=== PATIENT | male | born 1990 | race Caucasian/White ===

== ENCOUNTER 2020-04-12 01:24 | Emergency (ER) | payer OTHER, SELFPAY ==
[2020-04-12 01:29] VITALS: BP 138/92; PULSE 105; RESP 18; TEMP 37.8; O2SAT 95; BMI 35.3
[2020-04-12 02:22] VITALS: TEMP 37.4
[2020-04-12] MEDS: 0.9 % Sodium Chloride 1,000 ML 999 ML IVCONT (03:31)
[2020-04-12] MEDS: Ketorolac Tromethamine 30 MG/ML VIAL IVPUSH (03:31)
[2020-04-12 03:44] LABS: MANUAL DIFF FLAG NO
[2020-04-12 03:45] LABS: Basophils Percent Auto 0.4 % (0-2); Eosinophils Percent Auto 0.2 % (0-4); Hematocrit 47.7 % (42-52); Hemoglobin 16.1 g/dl (14.0-18.0); Imm Gran Abs Auto 0.03 X10*3/uL (0.00-0.03); Imm Gran Pct Auto 0.3 % (0.0-0.4); Lymphocytes Absolute Auto 2.1 X10*3/uL (1.2-4.9); Lymphocytes Percent Auto 22.1 % (20-40); Mean Corpuscular HGB Conc 33.8 g/dl (31.0-36.0); Mean Corpuscular Hemoglobin 27.8 pg (27.0-33.0); Mean Corpuscular Volume 82.4 fL (80-98); Mean Platelet Volume 10.4 fL (9.4-12.4); Monocytes Absolute Auto 0.7 X10*3/uL (0.1-1.2); Monocytes Percent Auto 7.3 % (2-11); Neutrophils Absolute Auto 6.6 X10*3/uL (2.0-8.3); Neutrophils Percent Auto 69.7 % (45-73); Platelet Count 255 X10*3/uL (160-400); Red Blood Count 5.79 X10*6/uL (4.60-5.80); Red Cell Distribution Width 13.5 % (11.0-16.0); White Blood Count 9.5 X10*3/uL (4.8-10.8)
--- NOTE | 2020-04-12 03:50 | PC.NURSE ---
dr márquez placed central line in right jugular. tolerated well. pt bp 100/60 at this time 101 bpm on monitor.
[2020-04-12 03:51] VITALS: RESP 24
[2020-04-12 04:20] LABS: Alanine Aminotransferase 49 U/L (0-40); Alkaline Phosphatase 79 U/L (39-117); Anion Gap 14 (12-20); Aspartate Amino Transferase 41 U/L (5-37); Bilirubin Direct 0.2 mg/dL (0.0-0.5); Blood Urea Nitrogen 8 mg/dL (9-16); Calcium 9.8 mg/dL (8.4-10.2); Carbon Dioxide 28 mmol/L (22-29); Chloride 105 mmol/L (96-108); Creatinine Clr Calc Pharmacy 109.2; Estimated Glomerular Filt Rate > 60; Glucose Random 90 mg/dL (60-115); Potassium 4.5 mmol/l (3.3-5.1); Sodium 142 mmol/L (135-145); Total Protein 7.9 g/dL (6.5-8.0)
[2020-04-12 04:23] VITALS: BP 145/88; PULSE 75; RESP 18; TEMP 37.2; O2SAT 99
--- NOTE | 2020-04-12 04:46 | ED.GENADULT ---
HPI - General Adult General Chief complaint: Weakness Stated complaint: COVID SYMPTOMS Time Seen by Provider: 04/12/20 02:47 Source: patient Mode of arrival: ambulatory Limitations: no limitations History of Present Illness HPI narrative: patient states for 1-2 days has been feeling generalized weakness. Mild cough and runny nose. Patient states was exposed to someone with COVID couple days ago and now feeling run down. Denies chest pain shortness of breath or dyspnea on exertion. Denies nausea vomiting or diarrhea Onset (ago): day(s) ( 2 days) Severity: moderate Severity scale (1-10): 3 Pain Consistency: constant Relieving factors: none Exacerbating factors: immobilization Related Data Allergies Allergy/AdvReac Type Severity Reaction Status Date / Time No Known Drug Allergies Allergy Unknown NONE Unverified 03/20/20 16:16 [NO KNOWN DRUG ALLERGIES] Review of Systems Review of Systems: Constitutional : No Weight loss, No Fever, No Chills, No Night Sweats, positiveFatigue, general Malaise ENT/Mouth : No Hearing loss, No Ear Pain, No Nasal Congestion, No Sinus Pain, No Hoarseness, No sore throat, No Rhinorrhea, No Swallowing Difficulty Eyes: No Eye Pain, No Swelling, No Redness, No Foreign Body, No Discharge, No Vision Changes Cardiovascular : No Chest Pain, No SOB, No Dyspnea on Exertion, No Orthopnea, No Edema, No Palpitations Respiratory : No Cough, No Sputum, No Wheezing, No Smoke Exposure, No Dyspnea Gastrointestinal : No Nausea, No Vomiting, No Diarrhea, No Constipation, No abdominal Pain, No Hematochezia, No Melena Genitourinary : no irregular bleeding, No Dysuria, No Urinary Frequency, No Hematuria, No Urinary Incontinence, No Urgency, No Flank Pain, No Urinary Flow Changes, No Hesitancy Musculoskeletal : No joint pain, No Myalgias, No Joint Swelling Skin : No Skin Lesions, No rash Neuro : No Weakness, No Numbness, No Paresthesias, No Loss of Consciousness, No Dizziness, No Headache Psych : No Anxiety/Panic, No Depression, No SI/HI/AH/VH, No Social Issues, Heme/Lymph: No Bruising, No Bleeding,No Lymphadenopathy Endocrine : No Polyuria, No Polydipsia, No Temperature Intolerance PMFSH Past Medical History Medical History ADHD Hypertension Family History Family History (Updated 04/12/20 @ 04:47 by Nikolai Ozuna DO) Other Family history non-contributory Social History Social History Alcohol intake: never Smoking Status: Former smoker Smoked in Last 30 Days: No Use of substances other than those prescribed or required for medical reasons: No Advance Directives: No Advance Directives Information Provided: No Physical Exam Vital Signs and I&O and Narrative: Vital Signs and I&O: Vital Signs Temp 99.0 F 04/12/20 04:23 Pulse 75 04/12/20 04:23 Resp 18 04/12/20 04:23 BP 145/88 H 04/12/20 04:23 Pulse Ox 99 04/12/20 04:23 Intake & Output 04/11/20 04/11/20 04/12/20 06:59 18:59 06:59 Intake Total 1000 / 1000 Balance 1000 / 1000 Weight 84.822 kg Intake: Intake, IV Amoun t 1000 / 1000 0.9 % Sodium C hloride 1,000 ml 1000 / 1000 @ 999 mls/hr I VCONT .Q1H1M [facility] Rx#:[id number] Body Mass Index 35.3 vital signs reviewed pulse ox 99% room air interpreted by me as normal Appearance: Alert. Oriented X3. No acute distress. Eyes: Pupils equal, round and reactive to light. ENT: Pharynx normal. Neck: Normal inspection. Neck supple. No lymph nodes noted. No crepitus CVS: Normal heart rate and rhythm. Pulses normal. Normal S1 and S2 Respiratory: No respiratory distress. Breath sounds normal. No Wheezing. No rales Abdomen: Soft and nontender. No rigidity. No distention. good BS x4 Skin: Skin warm and dry. Normal skin color. Normal skin turgor. Extremities: No lower extremity edema. Neurovascular intact to all extremities. No Lacerations. No Rash Neuro: Oriented X 3. No motor deficit. No sensory deficit. Moving all extermities. No slurred speech. Medical Decision Making MDM Narrative Medical decision making narrative: 29-year-old male coming in for generalized malaise. History of positive COVID exposure. Normal labs no hypoxia feeling better with IV Toradol and IV fluids will discharge with isolation recommendations until COVID test results Lab Data Result diagrams: 04/12/20 03:32 04/12/20 03:32 Labs: Lab Results 04/12/20 04/12/20 Range/Units 03:32 03:32 WBC 9.5 (4.8-10.8) X10*3/uL RBC 5.79 (4.60-5.80) X10*6/uL Hgb 16.1 (14.0-18.0) g/dl Hct 47.7 (42-52) % MCV 82.4 (80-98) fL MCH 27.8 (27.0-33.0) pg MCHC 33.8 (31.0-36.0) g/dl RDW 13.5 (11.0-16.0) % Plt Count 255 (160-400) X10*3/uL MPV 10.4 (9.4-12.4) fL Immature Gran % (Auto) 0.3 (0.0-0.4) % Neut % (Auto) 69.7 (45-73) % Lymph % (Auto) 22.1 (20-40) % Real % (Auto) 7.3 (2-11) % Eos % (Auto) 0.2 (0-4) % Baso % (Auto) 0.4 (0-2) % Lymph # (Auto) 2.1 (1.2-4.9) X10*3/uL Real # (Auto) 0.7 (0.1-1.2) X10*3/uL Eos # (Auto) 0.0 (0.0-0.4) X10*3/uL Baso # (Auto) 0.0 (0.0-0.2) X10*3/uL Abs Immat Gran (auto) 0.03 (0.00-0.03) X10*3/uL Absolute Neuts (auto) 6.6 (2.0-8.3) X10*3/uL Absolute Nucleated RBC 0.000 (0.0-0.012) X10*3/uL Nucleated RBC % (auto) 0.0 (0.0-0.2) /100WBC Sodium 142 (135-145) mmol/L Potassium 4.5 (3.3-5.1) mmol/l Chloride 105 (96-108) mmol/L Carbon Dioxide 28 (22-29) mmol/L Anion Gap 14 (12-20) BUN 8 L (9-16) mg/dL Creatinine 0.93 (0.5-1.4) mg/dL Estim Creat Clear Calc 109.2 Estimated GFR > 60 Random Glucose 90 (60-115) mg/dL Calcium 9.8 (8.4-10.2) mg/dL Total Bilirubin 1.0 (0.0-1.0) mg/dL Direct Bilirubin 0.2 (0.0-0.5) mg/dL AST 41 H (5-37) U/L ALT 49 H (0-40) U/L Alkaline Phosphatase 79 (39-117) U/L Total Protein 7.9 (6.5-8.0) g/dL Albumin 5.0 (3.5-5.0) g/dL Discharge Plan Discharge Clinical Impression: Acute viral syndrome, Malaise Patient Disposition: Home, Self-Care Instructions: Viral Syndrome (ED) Additional Instructions: CDC Guidelines for home isolation: Follow these instructions until your Covid results return - Stay away from others - Limit contact with pets and animals: If you must care for a pet, wash your hands before and after interacting with them - Wear a mask if you are sick - Cover your mouth and nose with a tissue when you cough or sneeze. Dispose of tissues in a lined trash can and wash your hands immediately with soap and water for at least 20 seconds. If soap and water are not available, clean hands with alcohol-based hand lease administration supervisor that contains at least 60% alcohol. - Clean your hands often with soap and water for at least 20 seconds - Avoid touching your eyes, nose and mouth with unwashed hands - Do not share dishes, drinking glasses, cups, eating utensils, towels, or bedding with other people in your home. After using these items, wash them thoroughly with soap and water or put in the jigger machine operator. - Clean high-touch surfaces in your isolation area ( sick room and bathroom) every day; let a caregiver clean and disinfect high-touch surfaces in other areas of the home. Clean the area or item with soap and water or another detergent if it is dirty. Then, use a household disinfectant. Seek medical attention, but call first: - Seek medical care right away if your illness is worsening (for example, if you have difficulty breathing). - Call your doctor before going in: Before going to the doctor's office or emergency room, call ahead and tell them your symptoms. They will tell you what to do. - If possible, put on a facemask before you enter the building. If you can't put on a facemask, try to keep a safe distance from other people (at least 6 feet away). This will help protect the people in the office or waiting room. - Follow care instructions from your healthcare provider and local health department: Your local health authorities will give instructions on checking your symptoms and reporting information. Emergency warning signs for COVID-19: - Difficulty breathing or shortness of breath - Persistent pain or pressure in the chest - New confusion or inability to arouse - Bluish lips or face Referrals: [facility] [Provider Group] - 2 days Interventions: ED Discharge Assessment Last Done: 04/12/20 05:02 Discharge Date/Time: 04/12/20 05:05
== END 2020-04-12 05:05 | disposition home or self-care (01) ==
PROVIDERS: Emergency Provider Emergency Medicine
DX: R05 Cough (principal); Z20.828 Contact with and (suspected) exposure to other viral communicable diseases
CPT/HCPCS: 36415; 80048; 80076; 85025; 87635; 96361; 96374; 99284; J1885

== ENCOUNTER 2020-07-15 23:07 | Emergency (ER) | payer OTHER, SELFPAY ==
[2020-07-15 23:12] VITALS: BP 131/65; PULSE 82; RESP 16; TEMP 36.7; O2SAT 98; BMI 33.0
[2020-07-15 23:53] LABS: Amphetamine Screen Urine Not Detected (Not Detect); Barbiturates, Urine Not Detected (Not Detect); Benzodiazepines Screen Urine Not Detected (Not Detect); Cannabinoid Screen Urine Not Detected (Not Detect); Cocaine Screen Urine Not Detected (Not Detect); Opiate Screen Urine Not Detected (Not Detect); Phencyclidine Screen Urine Not Detected (Not Detect)
--- NOTE | 2020-07-16 01:21 | MHC.CARE ---
CARE team support requested by ED provider re: assessing a pt who arrived by ambulance from work after making a suicidal statement during an argument with his boss. Pt reported that he works at [employer] and had a difficult weekend at work. Pt reported that overall he enjoys his job and that it keeps him busy, however on his days off he struggles to keep his mind occupied, especially given the social impacts of covid-19. Pt endorsed experiencing passive thoughts of suicidal ideation, though denied current thoughts. Pt identified financial and social stressors as the precipitants to these thoughts. Pt denied hx of suicide attempts, suicide planning, or engagement in self harm. Pt reported a hx of one previous inpt psychiatric admission in 2012. Pt is currently engaged with a therapist and a psychiatrist through [facility] in [place]. Pt has an appointment this week with his therapist, and stated that he has been consistent with treatment and finds it to be helpful. ED provider updated re: consultation, with plan for pt to discharge and follow up with his outpatient providers.
--- NOTE | 2020-07-16 01:25 | ED.PSYCH ---
HPI - Psych General Chief Complaint: Psychiatric Symptoms Stated Complaint: SI Source: patient Mode of arrival: ambulatory Limitations: no limitations History of Present Illness HPI Narrative: Patient presents to ED for mild SI statements that he said he made to his boss during an argument because he was mad. Patient has no plan to kill himself. Patient states he is compliant with his medication and has follow-up with his therapist this week. Patient states he has been under lot of stress at work. Related Data Allergies Allergy/AdvReac Type Severity Reaction Status Date / Time No Known Drug Allergies Allergy Unknown NONE Unverified 03/20/20 16:16 [NO KNOWN DRUG ALLERGIES] Review of Systems Review of Systems: Yes all other systems are reviewed and are negative Constitutional: Constitutional: Reports as per HPI and Reports no additional constitutional complaints Eyes: Eyes: Reports as per HPI and Reports no additional eye complaints ENT: Reports system reviewed and no additional complaints, except as documented and Reports as per HPI Cardiovascular: Cardiovascular: Reports as per HPI and Reports no additional cardiovascular complaints Respiratory: Respiratory: Reports as per HPI and Reports no additional respiratory complaints Gastrointestinal: Gastrointestinal: Reports as per HPI and Reports no additional gastrointestinal complaints Genitourinary: Genitourinary: Reports no additional male genitourinary complaints and Reports as per HPI Musculoskeletal: Musculoskeletal: Reports no additional musculoskeletal complaints and Reports as per HPI Neurologic: Reports system reviewed and no additional complaints, except as documented and Reports as per HPI Psychiatric: Psychiatric: Reports no additional psychiatric complaints and Reports as per HPI PMF Past Medical History Medical History ADHD Hypertension Family History Family History (Updated 04/12/20 @ 04:47 by Nikolai Ozuna DO) Other Family history non-contributory Social History Social History Alcohol intake: never Smoking Status: Former smoker Advance Directives: No Physical Exam Vital Signs: Vital Signs: Last Vital Signs Temp 98.0 F 07/15/20 23:12 Pulse 82 07/15/20 23:12 Resp 16 07/15/20 23:12 BP 131/65 07/15/20 23:12 Pulse Ox 98 07/15/20 23:12 Body Mass Index 33.0 Const: General: cooperative, healthy appearing, comfortable, no acute distress, well developed, alert, awake and Physically active Orientation/consciousness: patient oriented x3 HENMT: Head: Yes normal to inspection, Yes No palpable skull fracture present, Yes normocephalic and Yes atraumatic Eyes: General: appearance normal, both eyes and all related structures Neck: Neck: Yes normal visual inspection, Yes full ROM, Yes no lymphadenopathy, Yes no meningeal signs, Yes trachea midline, Yes supple and No tender Chest: Chest palpation & inspection: normal inspection of the chest and normal palpation of entire chest wall Resp: Effort & Inspection: normal respiratory effort and able to speak in complete sentences Auscultation: clear to auscultation bilaterally Cardio: Jugular venous distension: no JVD Heart sounds: S1 normal heart sound present and S2 normal heart sound present GI: Inspection: Yes normal to inspection and No abdominal wall ecchymosis Palpation (GI): Soft to palpation, not firm, nontender, no guarding and not rigid : General: No CVA tenderness and Yes no CVA tenderness Back/Spine/Pelvis: Back: no CVA tenderness, No CVA tenderness and No back tenderness Skin: General skin exam: no rashes or lesions noted and elasticity normal Neuro: General: patient oriented x3, no meningeal signs and CN's II-XI intact bilaterally Cranial nerves: Yes CN's II-XII intact bilaterally Extrem: General: Yes normal to inspection and Yes full ROM Psych: Appearance: grossly normal, well kempt and not disheveled Mental Status: mental status grossly normal Speech and movement: Normal speech and movement present Affect: normal affect Attitude: cooperative Thought process: Normal thought process present Thought content: suicidality and no homicidality Insight: Good insight present (Psych) Judgement: Good judgement present (Psych) Course Course Course Narrative: Patient U tox will be sent and patient will be evaluated for care Team consult amanda. Reevaluation(s) Reevaluation #1: Care team technical assistance consultant Michelle evaluated patient and states patient does not need [facility] evaluation. She states patient is not suicidal or homicidal. She states patient has no plan and is safe for discharge. I re-evaluated patient and patient is not suicidal or homicidal. Time: 01:26 MDM - Psych MDM Narrative Medical decision making narrative: Depression Restraints Face to Face Assessment: Face to Face Assessment: Current Situation: After assessment of the patient, a review of the pertinent medical record and a discussion with nursing staff, I feel the patient requires a restrain intervention. Reaction To: [] Medical Condition: [] Behavioral State: [] Continued Need: [] Lab Data Labs: Lab Results 07/15/20 Range/Units 23:32 Urine Opiates Screen Not Detected (Not Detect) Ur Barbiturates Screen Not Detected (Not Detect) Ur Phencyclidine Scrn Not Detected (Not Detect) Ur Amphetamines Screen Not Detected (Not Detect) U Benzodiazepines Scrn Not Detected (Not Detect) Urine Cocaine Screen Not Detected (Not Detect) U Marijuana (THC) Screen Not Detected (Not Detect) Discharge Plan Discharge Clinical Impression: Depression Patient Disposition: Home, Self-Care Instructions: Depression (ED) Additional Instructions: Return to the ED immediately for any suicidal/homicidal ideation, auditory/visual hallucinations, any physical complaints, or any other concerning symptoms. Please follow-up with your therapist Interventions: ED Discharge Assessment Last Done: 07/16/20 01:34 Discharge Date/Time: 07/16/20 01:46 Print Language: Occitan
== END 2020-07-16 01:46 | disposition home or self-care (01) ==
PROVIDERS: Emergency Provider Internal Medicine
DX: F33.1 Major depressive disorder, recurrent, moderate (principal); R45.851 Suicidal ideations
CPT/HCPCS: 80307; 99283

== ENCOUNTER 2025-03-21 12:38 | Inpatient (IN) | payer MEDICAID, OTHER, SELFPAY ==
[2025-03-21 12:51] VITALS: BP 138/88; PULSE 86; O2SAT 96; BMI 36.1
[2025-03-21 13:12] LABS: MANUAL DIFF FLAG NO
[2025-03-21 13:15] LABS: Hematocrit 47.7 % (42.0-52.0); Hemoglobin 16.6 g/dl (14.0-18.0); Imm Gran Abs Auto 0.02 X10*3/uL (0.00-0.03); Imm Gran Pct Auto 0.3 % (0.0-0.4); Lymphocytes Absolute Auto 1.6 X10*3/uL (1.2-4.9); Mean Corpuscular HGB Conc 34.8 g/dl (31.0-36.0); Mean Corpuscular Hemoglobin 28.0 pg (27.0-33.0); Mean Corpuscular Volume 80.6 fL (80.0-98.0); NRBC Abs Auto 0.000 X10*3/uL (0.0-0.012); NRBC Pct Auto 0.0 /100WBC (0.0-0.2); Platelet Count 268 X10*3/uL (160-400); Red Blood Count 5.92 X10*6/uL (4.60-5.80); White Blood Count 7.3 X10*3/uL (4.8-10.8)
--- NOTE | 2025-03-21 13:15 | ED.PSYCH ---
HPI - Psych General Chief Complaint: Psychiatric Symptoms Stated Complaint: SI statements Time Seen by Provider: 03/21/25 12:46 Source: patient, EMS and old records reviewed Mode of arrival: EMS Limitations: no limitations History of Present Illness ED Provider: DEBORAH SLAUGHTER Narrative: 34 yo male with PMH of ETOH abuse, seizures, depression, cocaine abuse who notes he is having a hard time with paying bills and living. He went to therapy today and told them he hasn't taken his meds in a month, he has SI and plans to overdose on his medications. He denies ingestions or trauma. He is having financial issues MD complaint: suicidal ideation, feels depressed and substance abuse Onset (ago): week(s) Duration: getting worse History of same: Yes Relieving factors: none Exacerbating factors: alcohol Context: recent alcohol abuse, recent drug abuse, not taking psychiatric medications and significant life stressor Associated psychiatric symptoms: depression and suicidal ideation Associated symptoms: denies other symptoms Treatments prior to arrival: none If self harm: admits thoughts of self harm and has plan Related Data Home Medications ?Medication ?Instructions ?Recorded ?Confirmed escitalopram oxalate 20 mg tablet 20 mg PO QAM depressive disorder 03/21/25 03/21/25 folic acid 1 mg tablet 1 mg PO DAILY 03/21/25 03/21/25 levetiracetam 500 mg tablet 500 mg PO BID 03/21/25 03/21/25 naltrexone 50 mg tablet 50 mg PO QAM 03/21/25 03/21/25 quetiapine 200 mg tablet 200 mg PO BEDTIME 03/21/25 03/21/25 thiamine HCl (vitamin B1) 100 mg 100 mg PO DAILY 03/21/25 03/21/25 tablet Allergies Allergy/AdvReac Type Severity Reaction Status Date / Time No Known Drug Allergies (NO Allergy Unknown NONE Verified 03/21/25 12:59 KNOWN DRUG ALLERGIES) Review of Systems Review of Systems: Constitutional : No Fever, No Chills ENT/Mouth : No Ear Pain, No Nasal Congestion, No sore throat Eyes: No Eye Pain, No Swelling, No Redness Cardiovascular : No Chest Pain, No SOB Respiratory : No Cough, No Sputum, No Dyspnea Gastrointestinal : No Nausea, No Vomiting, No Diarrhea, No Hematochezia, No Melena Genitourinary : No Dysuria, No Urinary Frequency, No Hematuria Musculoskeletal : No Myalgias Skin : No Skin Lesions, No rash Neuro : No Weakness, No Numbness, No Paresthesias, No Dizziness, No Headache Psych : positive Anxiety, positive Depression, positive SI no HI All other systems reviewed and are negative [facility] Past Medical History Attestation statement: The following information was validated with the patient. Source: old records reviewed Medical History Hypertension ADHD Family History Family History (Updated 04/12/20 @ 04:47 by Nikolai Ozuna DO) Other Family history non-contributory Social History Social History Household Members: None Housing: Apartment Do you presently have visiting nurse or other home services: No Alcohol intake: never Patient Tobacco Use Status: Refuse Tobacco use screen Advance Directives: No Advance Directives Information Provided: No Do you have a plan to hurt others: No Plan Recently lost weight without trying: No Eating poorly because of decreased appetite: Yes Nutrition Risks: No Nutritional Risk Poor oral hygiene: Yes Physical Exam Vital Signs: Vital Signs: Last Vital Signs Temp 97.7 F 03/22/25 12:30 Pulse 97 03/22/25 12:30 Resp 20 03/22/25 12:30 BP 119/86 03/22/25 12:30 Pulse Ox 98 03/22/25 12:30 O2 Del Method Room Air 03/22/25 12:30 BMI result Body Mass Index 36.1 Appearance: Alert. Oriented X3. No acute distress. Eyes: Pupils equal, round and reactive to light. ENT: Pharynx normal. Neck: Normal inspection. Neck supple. CVS: Normal heart rate and rhythm. Pulses normal. Respiratory: No respiratory distress. Breath sounds normal. Abdomen: Soft and nontender. Skin: Skin warm and dry. Normal skin color. Extremities: No lower extremity edema. Neuro: Oriented X 3. No motor deficit. No sensory deficit. cranial nerve exam not applicable Course Course Course Narrative: Time: 06:04 Date: 03/22/25 Provider: Marya Mcmanus DO Patient in physician observation for psychiatric evaluation.? No acute events reported overnight. No current complaints. VS stable.? Pending CARE team evaluation. Will continue to monitor. Reevaluation(s) Reevaluation #1: Time: 12:03 Date: 03/22/25 Provider: Marya Mcmanus DO Physician observation ended at 1203pm. Patient to be admitted as inpatient to psychiatry. Medications Administered Generic Name Dose Route Start Last Admin Trade Name Rodoq PRN Reason Stop Dose Admin Escitalopram Oxalate 20 mg 03/22/25 09:00 03/22/25 08:52 Escitalopram Oxalate 20 Mg Tablet PO 20 mg DAILY KHALIF Administration Folic Acid 1 mg 03/22/25 09:00 03/22/25 08:52 Folic Acid 1 Mg Tablet PO 1 mg DAILY KHALIF Administration Hydroxyzine HCl 25 mg 03/22/25 13:10 03/22/25 14:17 Hydroxyzine Hcl 25 Mg Tablet PO 25 mg Q6H PRN Administration mild anxiety Levetiracetam 500 mg 03/21/25 14:00 03/22/25 08:52 Levetiracetam 500 Mg Tablet PO 500 mg BID KHALIF Administration Naltrexone HCl 50 mg 03/22/25 09:00 03/22/25 08:52 Naltrexone Hcl 50 Mg Tablet PO 50 mg DAILY KHALIF Administration Thiamine HCl 100 mg 03/22/25 09:00 03/22/25 08:52 Thiamine Hcl 100 Mg Tablet PO 100 mg DAILY KHALIF Administration Discontinued Medications Generic Name Dose Route Start Last Admin Trade Name Freq PRN Reason Stop Dose Admin Diphenhydramine HCl 25 mg 03/21/25 19:54 03/21/25 20:08 Diphenhydramine Hcl 25 Mg Capsule PO 03/21/25 19:55 25 mg ONCE ONE Administration Diphenhydramine HCl 25 mg 03/22/25 03:00 03/22/25 06:14 Diphenhydramine Hcl 25 Mg Capsule PO 03/22/25 03:01 Not Given ONCE ONE Lorazepam 2 mg 03/21/25 13:49 03/22/25 02:15 Lorazepam 1 Mg Tablet PO 2 mg Q3H PRN Administration Alcohol Withdrawal Melatonin 6 mg 03/21/25 19:54 03/21/25 20:08 Melatonin 3 Mg Tablet PO 03/21/25 19:55 6 mg ONCE ONE Administration Melatonin 6 mg 03/22/25 03:00 03/22/25 06:15 Melatonin 3 Mg Tablet PO 03/22/25 03:01 Not Given ONCE ONE Quetiapine Fumarate 200 mg 03/22/25 03:00 03/22/25 03:09 Quetiapine Fumarate 200 Mg Tablet PO 03/22/25 03:01 200 mg ONCE ONE Administration Medical Decision Making Medical Decision Making MDM Narrative: 34 yo male with PMH of ETOH abuse, seizures, depression, cocaine abuse now here with financial issues and unable to pay the bills at this time will need labs, PRN medications including restarting 500mg BID for his seizure, CIWA and PRN ativan. He will be referred to care team Differential Diagnosis Differential Diagnoses: The differential diagnosis associated with the presentation includes drug abuse, SI, depression Admission/Observation Consideration of admission/observation: Escalation of care including admission/observation considered physician observation started at 2pm pending CARE team Consult Healthcare Provider Management of the patient was discussed with: Behavioral Health Provider Lab Data [facility] Lab Attestation statement: I reviewed the patient's lab results. 03/21/25 13:06 03/21/25 13:06 Labs: Lab Results 03/21/25 03/21/25 03/21/25 Range/Units 13:06 16:48 16:49 WBC 7.3 (4.8-10.8) X10*3/uL RBC 5.92 H (4.60-5.80) X10*6/uL Hgb 16.6 (14.0-18.0) g/dl Hct 47.7 (42.0-52.0) % MCV 80.6 (80.0-98.0) fL MCH 28.0 (27.0-33.0) pg MCHC 34.8 (31.0-36.0) g/dl RDW 13.7 (11.0-16.0) % Plt Count 268 (160-400) X10*3/uL MPV 9.6 (9.4-12.4) fL Immature Gran % (Auto) 0.3 (0.0-0.4) % Neut % (Auto) 69.1 (45-73) % Lymph % (Auto) 21.8 (20-40) % [place] % (Auto) 6.9 (2-11) % Eos % (Auto) 1.2 (0-4) % Baso % (Auto) 0.7 (0-2) % Lymph # (Auto) 1.6 (1.2-4.9) X10*3/uL [place] # (Auto) 0.5 (0.1-1.2) X10*3/uL Eos # (Auto) 0.1 (0.0-0.4) X10*3/uL Baso # (Auto) 0.1 (0.0-0.2) X10*3/uL Abs Immat Gran (auto) 0.02 (0.00-0.03) X10*3/uL Absolute Neuts (auto) 5.1 (2.0-8.3) x10*3/uL Absolute Nucleated RBC 0.000 (0.0-0.012) X10*3/uL Nucleated RBC % (auto) 0.0 (0.0-0.2) /100WBC Sodium 142 (135-145) mmol/L Potassium 3.5 (3.3-5.1) mmol/L Chloride 104 (96-108) mmol/L Carbon Dioxide 29 (22-29) mmol/L Anion Gap 13 (12-20) BUN 10 (9-16) mg/dL Creatinine 1.00 (0.5-1.4) mg/dL Estim Creat Clear Calc 94.4 Estimated GFR > 60 Random Glucose 100 (60-115) mg/dL Calcium 9.8 (8.4-10.2) mg/dL Magnesium 1.8 (1.6-2.6) mg/dL Total Bilirubin 1.0 (0.0-1.0) mg/dL Direct Bilirubin 0.2 (0.0-0.5) mg/dL AST 27 (5-37) U/L ALT 29 (0-40) U/L Alkaline Phosphatase 116 (39-117) U/L Total Protein 8.5 H (6.5-8.0) g/dL Albumin 4.9 (3.5-5.0) g/dL Urine Color Yellow Urine Appearance Clear Urine pH 6.0 (5.0-9.0) Ur Specific [place] 1.025 (1.005-1.025) Urine Protein Trace (Neg-Trace) mg/dL Urine Glucose (UA) Negative (Negative) mg/dL Urine Ketones 15 (Negative) mg/dL Urine Blood Negative (Negative) Urine Nitrite Negative (Negative) Ur Leukocyte Esterase Negative (Negative) Urine RBC 0-2 (0-2) /HPF Urine WBC 0-5 (0-5) /HPF Ur Squamous Epith Cells 0-2 (0-2) /HPF Urine Bacteria None Seen (None Seen) Hyaline Casts 3-5 (0-2) /LPF Urine Opiates Screen Not Detected (Not Detect) Ur Buprenorphine Scrn Not Detected (Not Detect) ng/mL Ur Oxycodone Screen Not Detected (Not Detect) ng/mL Urine Methadone Screen Not Detected (Not Detect) ng/mL Urine Fentanyl Screen Not Detected (Not Detect) Ur Barbiturates Screen Not Detected (Not Detect) Ur Phencyclidine Scrn Not Detected (Not Detect) Ur Amphetamines Screen Not Detected (Not Detect) U Benzodiazepines Scrn Not Detected (Not Detect) Urine Cocaine Screen POSITIVE H (Not Detect) U Marijuana (THC) Screen Not Detected (Not Detect) Ethyl Alcohol < 10 mg/dL Independent Historian Clinical information obtained from an independent historian. History obtained from or confirmed by: EMS External Record Review External record reviewed: Inpatient record and Outpatient record Social Determinants Patient?s care significantly limited by Social Determinants of Health including: Inadequate housing and Problems related to primary support group Discharge Plan Discharge Clinical Impression: Suicidal ideation Patient Disposition: Admitted As Inpatient Interventions: Admission Worksheet (ED) Last Done: 03/22/25 12:03 Discharge Date/Time: 03/22/25 12:12
[2025-03-21 13:33] LABS: Alanine Aminotransferase 29 U/L (0-40); Albumin Level 4.9 g/dL (3.5-5.0); Alkaline Phosphatase 116 U/L (39-117); Anion Gap 13 (12-20); Aspartate Amino Transferase 27 U/L (5-37); Blood Urea Nitrogen 10 mg/dL (9-16); Calcium 9.8 mg/dL (8.4-10.2); Carbon Dioxide 29 mmol/L (22-29); Chloride 104 mmol/L (96-108); Creatinine Clr Calc Pharmacy 94.4; Estimated Glomerular Filt Rate > 60; Magnesium 1.8 mg/dL (1.6-2.6); Potassium 3.5 mmol/L (3.3-5.1); Sodium 142 mmol/L (135-145); Total Protein 8.5 g/dL (6.5-8.0)
[2025-03-21 14:27] VITALS: BP 140/89; PULSE 112; RESP 18; TEMP 36.3; O2SAT 98
--- NOTE | 2025-03-21 14:32 | PC.NURSE ---
Pt is oriented to the unit and provided food and a beverage. Pt is quiet and withdrawn, he admits to feeling very depressed and wanting to , he states he has thought about hoarding pills and overdosing. He is given a PRN - ativan and is ressting in his room. safety is maintained.
--- NOTE | 2025-03-21 15:20 | ECG_ITS ---
Test Reason : R/O PROLONGED QT Blood Pressure : */* mmHG Vent. Rate : 83 BPM Atrial Rate : 83 BPM P-R Int : 156 ms QRS Dur : 92 ms QT Int : 378 ms P-R-T Axes : 50 6 38 degrees QTcB Int : 444 ms Normal sinus rhythm with sinus arrhythmia Normal ECG No previous ECGs available Referred By: Marya Mcmanus Electronically Signed By: SVETLANA RODRIGUEZ
--- OUTSIDE RECORDS SUMMARY | 2025-03-21 16:23 | XMS_ITS | Clinical Summary ---
Author Organization [facility] Address [address] [place] [address] Care Team Providers Care Warehouse Selector Name Role Phone Ref, Has No Pcp Or Primary Care Provider Unavail able Allergies No known active allergies Medications acetaminophen (TYLENOL) 325 mg tablet Take 650 mg by mouth every 4 hours as needed for pain. Active calcium carbonate-vitam in D3 500 mg-200 units tablet Take 1 tablet by mouth 3 times a day as needed (heartburn). Active docusate sodium (COLACE) 100 mg capsule Take 100 mg by mouth 2 times a day as needed for constipation. Active ibuprofen (MOTRIN) 400 mg tablet Take 400 mg by mouth every 8 hours as needed for pain. Active lithium 300 mg tablet Take 300 mg by mouth at bed time. Nightly once a day Active loperamide (IMODIUM) 2 mg capsule Take 2 mg by mouth as needed for diarrhea. Active melatonin 3 mg tablet Take 3 mg by mouth nightly as needed for sleep. Active nicotine polacrilex (NICORETTE) [address] 2 mg between cheek and gums as needed for nicotine cravings. Active QUEtiapine XR (SEROquel XR) 200 mg tablet Take 200 mg by mouth nightly. Active albuterol (PROAIR HFA,VENTOLIN HFA) 90 mcg inhaler Inhale 1-2 puffs by mouth every 4 hours as needed for wheezing or shortness of breath. Use with spacer. Active cetirizine (ZyrTEC) 10 mg tablet Take 10 mg by mouth once a day. Active omeprazole OTC (PriLOSEC OTC) 20 mg EC tablet Take 20 mg by mouth once a day. Active levETIRAcetam (KEPPRA) 500 mg tablet Take 1 tablet (500 mg total) by mouth 2 times a day. 60 tablet 4 Active folic acid (FOLVITE) 1 mg tablet Take 1 tablet (1 mg total) by mouth once a day. 30 tablet Active thiamine HCl (VITAMIN B1) 100 mg tablet Take 1 tablet (100 mg total) by mouth once a day. 30 tablet Active escitalopram (LEXAPRO) 20 mg tablet Take 1 tablet (20 mg total) by mouth once a day. 30 tablet Active Active Problems Problem Noted Date Diagnosed Date Moderate episode of recurrent major depressive d isorder 11/16/2023 PTSD (post-traumatic stress disorder) 11/16/2023 History of suicidal ideation 11/16/2023 ADHD 11/16/2023 Seizure disorder 11/16/2023 Substance abuse 11/16/2023 Resolved Problems Problem Noted Date Diagnosed Date Resolved Date Alcohol-induced acute pancre atitis without infection or necrosis 11/25/2023 11/25/2023 Rhabdomyolysis 11/16/2023 11/25/2023 Social History Tobacco Use Types Packs/Day Years Used Date Smoking Tobacco: Never Smokeless Tobacco: Never Tobacco Cessation:Counseling Given: No Sex and Gender Information Value Date Recorded Sex Assigned at Male 11/15/2023 10:14 PM EDT Legal Sex Male 9:20 PM EDT Gender Identity Not on file Sexual Orientation Not on file Last Filed Vital Signs Vital Sign Reading Time Taken Comments Blood Pressure 128/94 11/25/2023 12:22 PM EDT Pulse 87 11/25/2023 12:30 PM EDT Temperature 36.3 C (97.3 F) 11/25/2023 12:22 PM EDT Respiratory Rate 18 11/25/2023 12:22 PM EDT Oxygen Saturation 96% 11/25/2023 12:22 PM EDT Inhaled Oxygen Concentration - - Weight 74.8 kg (165 lb) 11/15/2023 9:36 PM EDT Height 152.4 cm (5') 11/15/2023 9:36 PM EDT Body Mass Index 32.22 11/15/2023 9:36 PM EDT Plan of Treatment Health Maintenance Due Date Last Done Comments HIV Screening 1991 Hepatitis C Screening 1991 Varicella Vaccines (1 of 2 - 13+ 2-dose series) 12/06/2004 Hepatitis B Vaccines (1 of 3 - 19+ 3-dose series) 12/06/2010 DTaP,Tdap,and Td Vaccines (1 - Tdap) 12/06/2013 Alcohol/Substance Use Screening 07/04/2024 Depression Screening and Follow-Up 07/04/2024 Social Drivers of Health Reanna ual Screening 07/04/2024 COVID-19 Vaccine (2 - 2024-2 6 season) 2025 05/01/2021 Influenza Vaccine (#1) 2025 RSV Vaccine (60+ years old a nd patients) (1 - 1-dose 75+ series) 12/06/2066 Pneumococcal Vaccine: Pediat titus (0-5 Years) and At-Risk Patients (6-50 Years) Aged Out No longer eligible b ased on patient's age to complete this topic Insurance [employer] Advance Directives * Full Code (Latest Code Status on File) Date Activated Date Inactivated Comments 11/16/2023 8:02 AM 11/25/2023 4:20 PM Care Teams Warehouse Selector Relationship Specialty Start Date End Date Ref, Has No Pcp Or DO NOT EDIT THIS RECORD VIA PROVIDER ON THE FLY PCP - General Ambulance Driver 11/15/23
--- OUTSIDE RECORDS SUMMARY | 2025-03-21 16:23 | XMS_ITS | Clinical Summary ---
Author Organization [facility] Address [address] [place] [address] Care Team Providers Care Cyber Defense Incident Responder Name Role Phone Unavailable Primary Care Provider Unavailabl e Encounters Date Type Department Care Team Description 03/06/2025 Population Health Risk Score [facility] ([facility] Department [address] [facility] [address] [place] [address] Provider, Population Health Generic 01/17/2025 Telephone [facility] [address] [place] [address] Phyllis Mann MD from Last 3 Months Social History Tobacco Use Types Packs/Day Years Used Date Smoking Tobacco: Never Assessed Sex and Gender Information Value Date Recorded Sex Assigned at Male 05/03/2022 10:23 AM EDT Legal Sex Male 10:23 AM EDT Gender Identity Not on file Sexual Orientation Not on file Plan of Treatment Health Maintenance Due Date Last Done Comments Depression Screening 1991 HIV Screening 1991 Disability Screening 1991 Alcohol/Substance Use Screening 2003 Tobacco Screening 2003 Family Planning (PISQ) 12/06/2006 HPV Vaccines (1 - Male 3-dos e series) 12/06/2006 Hepatitis C Screening 12/06/2009 DTaP/Tdap/Td Vaccines (1 - Tdap) 12/06/2010 Hepatitis B Vaccines (1 of 3 - 19+ 3-dose series) 12/06/2010 COVID-19 Vaccine (1 - 2023-2 5 season) 2025 Influenza Vaccine (#1) 2025 Zoster Vaccines (1 of 2) 12/06/2041 RSV Patients and Pa tients Aged 60 years or older (1 - 1-dose 75+ series) 12/06/2066 HIB Vaccines Aged Out No longer eligi ble based on patient's age to complete this topic Hepatitis A Vaccines Aged Out No long er eligible based on patient's age to complete this topic IPV Vaccines Aged Out No longer eligi ble based on patient's age to complete this topic Meningococcal B Vaccine Aged Out No l onger eligible based on patient's age to complete this topic Meningococcal Vaccine Aged Out No tatyana yo eligible based on patient's age to complete this topic Pneumococcal Vaccine: Pediat rics (0 to 5 Years) and At-Risk Patients (6 to 49) Years Aged Out No longer eligible b ased on patient's age to complete this topic RSV under 20 months Aged Out No longe r eligible based on patient's age to complete this topic Rotavirus Vaccines Aged Out No longer eligible based on patient's age to complete this topic
[2025-03-21 17:00] LABS: Appearance Urine Clear; Glucose Urine UA Negative (Negative); PH 6.0 (5.0-9.0); Specific Gravity - Urine 1.025 (1.005-1.025)
[2025-03-21 17:11] LABS: Cannabinoid Screen Urine Not Detected (Not Detect)
--- NOTE | 2025-03-22 00:49 | PC.NURSE ---
pt requested seroquil to sleep. RN has messaged 2 providers. No new orders at this time. RN will try again.
[2025-03-22 01:56] VITALS: BP 140/89; PULSE 112; RESP 18; TEMP 36.3; O2SAT 98
--- NOTE | 2025-03-22 02:31 | PC.NURSE ---
Addendum entered by Tamiko Bates RN 03/22/25 06:15: pt refused 0300 meds- He stated he just wanted his seroquil which he did get. Addendum entered by Tamiko Bates RN 03/22/25 03:13: rn reached out to kiln charger to try to get pts seroquil in the mar- charge reached out to dr. luke who apologized for the delay in the med order and quickly put in seroquil and pts other meds in the MAR. RN medicated pt. will continue to monitor pt and continue to assess during shift. Original Note: pts ciwa is 5- pt medicated with prn ativan.
[2025-03-22 06:25] VITALS: BP 124/88; PULSE 95; RESP 16; O2SAT 98
--- NOTE | 2025-03-22 07:32 | PC.NURSE ---
Assumed care, report received. Pt is currently sleeping, safety maintained.
[2025-03-22 12:30] VITALS: BP 119/86; PULSE 97; RESP 20; TEMP 36.5; O2SAT 98
[2025-03-22 13:18] VITALS: BMI 35.8
--- NOTE | 2025-03-22 13:30 | HO.PM.IMCN ---
History of Present Illness Data of Consult Service Date: 03/22/25 Primary Care Provider: None Physician HPI Reason for consult: Medical management 34 yo male with PMH of ETOH abuse, seizures, depression, cocaine abuse presented to ED reporting he hasn't taken his meds in a month and SI and plans to overdose. UTox positive for cocaine, negative for alcohol, urinalysis negative for evidence of infection, electrolytes without any acute abnormalities, CBC within normal limits. No evidence of liver or renal impairment. On exam he denies any shortness of breath, dizziness, lightheadedness or other concerning symptoms. No health concerns Review of Systems Review of Systems: Denies any shortness of breath, chest pain, dizziness, lightheadedness, abdominal pain or discomfort, nausea vomiting or diarrhea PMFSH Medical History Hypertension ADHD Family History (Updated 04/12/20 @ 04:47 by Nikolai Ozuna DO) Other Family history non-contributory Social History Household Members: None Housing: Apartment Do you presently have visiting nurse or other home services: No Alcohol intake: never Patient Tobacco Use Status: Refuse Tobacco use screen Advance Directives: No Advance Directives Information Provided: No Do you have a plan to hurt others: No Plan Recently lost weight without trying: No Eating poorly because of decreased appetite: Yes Nutrition Risks: No Nutritional Risk Poor oral hygiene: Yes Meds Allergies Allergy/AdvReac Type Severity Reaction Status Date / Time No Known Drug Allergies (NO Allergy Unknown NONE Verified 03/21/25 12:59 KNOWN DRUG ALLERGIES) Active Medications: Current Medications Acetaminophen (Acetaminophen 325 Mg Tablet) 650 mg PO Q6H PRN PRN Reason: Headache/Pain, Scale 1-10 Al Hydroxide/Mg Hydroxide (Magnesium Hydrox/Alum Hydrox 30 Ml Oral.Susp) 30 ml PO Q6H PRN PRN Reason: Heartburn/Nausea Escitalopram Oxalate (Escitalopram Oxalate 20 Mg Tablet) 20 mg PO DAILY [facility] Last Admin: 03/22/25 08:52 Dose: 20 mg Folic Acid (Folic Acid 1 Mg Tablet) 1 mg PO DAILY [facility] Last Admin: 03/22/25 08:52 Dose: 1 mg Hydroxyzine HCl (Hydroxyzine Hcl 25 Mg Tablet) 25 mg PO Q6H PRN PRN Reason: mild anxiety Levetiracetam (Levetiracetam 500 Mg Tablet) 500 mg PO BID [facility] Last Admin: 03/22/25 08:52 Dose: 500 mg Magnesium Hydroxide (Milk Of Magnesia 30 Ml Oral.Susp) 30 ml PO DAILY PRN PRN Reason: Constipation Naltrexone HCl (Naltrexone Hcl 50 Mg Tablet) 50 mg PO DAILY [facility] Last Admin: 03/22/25 08:52 Dose: 50 mg Nicotine Polacrilex (Nicotine Polacrilex 2 Mg Gum) 4 mg BUCCAL Q2H PRN PRN Reason: Nicotine Cravings Quetiapine Fumarate (Quetiapine Fumarate 200 Mg Tablet) 200 mg PO BEDTIME [facility] Thiamine HCl (Thiamine Hcl 100 Mg Tablet) 100 mg PO DAILY [facility] Last Admin: 03/22/25 08:52 Dose: 100 mg Trazodone HCl (Trazodone Hcl 50 Mg Tablet) 50 mg PO BEDTIME MRX1 PRN PRN Reason: Insomnia Home Medications ?Medication ?Instructions ?Recorded ?Confirmed ?Last Taken ?Type escitalopram oxalate 20 mg tablet 20 mg PO QAM depressive disorder 03/21/25 03/21/25 03/20/25 History folic acid 1 mg tablet 1 mg PO DAILY 03/21/25 03/21/25 03/20/25 History levetiracetam 500 mg tablet 500 mg PO BID 03/21/25 03/21/25 03/20/25 History naltrexone 50 mg tablet 50 mg PO QAM 03/21/25 03/21/25 03/20/25 History quetiapine 200 mg tablet 200 mg PO BEDTIME 03/21/25 03/21/25 03/20/25 History thiamine HCl (vitamin B1) 100 mg 100 mg PO DAILY 03/21/25 03/21/25 03/20/25 History tablet Physical Exam Vital Signs and Narrative: Vital Signs: Last Vital Signs Temp 97.7 F 03/22/25 12:30 Pulse 97 03/22/25 12:30 Resp 20 03/22/25 12:30 BP 119/86 03/22/25 12:30 Pulse Ox 98 03/22/25 12:30 O2 Del Method Room Air 03/22/25 12:30 BMI result Body Mass Index 35.8 CONST: Alert and oriented, in NAD. Well nourished HEENT: Normocephalic, atraumatic, MMM, Eyes clear, Neck supple RESP: Lungs clear, RRR even and regular HEART:,RRR, S1, S2. No murmur, no edema GI:Abdomen Soft NT, ND. + BS times four :Deferred SKIN: Warm dry and intact, no visible lesions or rashes NEURO:CN II-XII Intact bilaterally, Sensation intact. Speech clear PSYCH: Normal affect Results Labs 03/21/25 13:06 03/21/25 13:06 Labs: Laboratory Results - last 24 hr 03/21/25 03/21/25 03/21/25 13:06 16:48 16:49 Anion Gap 13 Estim Creat Clear Calc 94.4 Estimated GFR > 60 Random Glucose 100 Calcium 9.8 Magnesium 1.8 Total Bilirubin 1.0 Direct Bilirubin 0.2 AST 27 ALT 29 Alkaline Phosphatase 116 Total Protein 8.5 H Albumin 4.9 Urine Color Yellow Urine Appearance Clear Urine pH 6.0 Ur Specific [place] 1.025 Urine Protein Trace Urine Glucose (UA) Negative Urine Ketones 15 Urine Blood Negative Urine Nitrite Negative Ur Leukocyte Esterase Negative Urine RBC 0-2 Urine WBC 0-5 Ur Squamous Epith Cells 0-2 Urine Bacteria None Seen Hyaline Casts 3-5 Urine Opiates Screen Not Detected Ur Buprenorphine Scrn Not Detected Ur Oxycodone Screen Not Detected Urine Methadone Screen Not Detected Urine Fentanyl Screen Not Detected Ur Barbiturates Screen Not Detected Ur Phencyclidine Scrn Not Detected Ur Amphetamines Screen Not Detected U Benzodiazepines Scrn Not Detected Urine Cocaine Screen POSITIVE H U Marijuana (THC) Screen Not Detected Ethyl Alcohol < 10 Assessment and Plan (1) Seizure disorder: Status: Acute Plan 29-year-old male with a past medical history of depression, seizure disorder, hypertension presented to the ED for suicide ideation, now admitted to inpatient for further care. Depression with suicidal ideation Treatment per psychiatric team Seizure disorder Continues on Keppra b.i.d. No recent seizures Hypertension Not currently on any meds Continue to monitor Thank you for allowing me to participate in the care of this patient. Will follow as needed, please notify medical provider with any changes in condition or concerns.
--- NOTE | 2025-03-22 13:44 | HO.PSYADMNOT ---
HPI Date of Service: 03/23/25 Chief Complaint: depression SI cocaine HPI Narrative: per [facility] eval, pt was referred to crisis from his clinician at [facility] after he expressed SI with plan to overdose on his medications. he reported he has no electricity or food in his apartment at [facility] at the moment and has been experiencing increased depression and anxiety. per collateral from pt's it disaster recovery manager, pt consumes alcohol and crack cocaine daily but does not have the financial resources to maintain that pace. in ED, labs notable for cocaine POS utox. on interview with MD, pt appeared most concerned about the recent cut-off of electricity in his apartment, which he stated he does not currently have the money to restart (service was terminated for non-payment). he is requesting social work help to have his service restarted. in addition, he reports he has no food in his apartment. he believes he has Sz D/O but has no neurologist, saying he gets his AED from [facility] prescriber. he also reports h/o alcohol withdrawal Sz. endorsing PRESTON, sweats, tremors, nausea today, agreeable to ativan per CIWA protocol. reports daily EtOH until 2 days ago. endorses trauma Hx, multiple suicide attempts. taking lexapro, naltrexone, seroquel, keppra; would like to continue curent regimen for now. plan to allow pt to get through the large part of detox/withdrawal over the weekend and reassess status on tuesday, when he will also be able to meet with . Past Psychiatric History: hosps: about 3 SA: reports about 4. MRE summer 2024 via attempted OD on pills SIB: denies outpt: [facility] Medical Evaluation Reviewed: Yes [facility] Medical History Hypertension ADHD Narrative: seizure disorder - reports it started last year, states he has no neurologist Family History: mother - depression brother - ADHD Social History: living at [facility] apartments. unemployed. 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 electricity was cut off yesterday due to nonpayment. has SSI and food stamps income. HS grad. Substance History: tobacco/nicotine - 2-3 times per week cannabis - denies alcohol - daily, as much as he can obtain cocaine - several days weekly opioids - denies stimulants - denies benzos - denies other - denies Trauma History: reports friend suicided via GSW. found another friend overdosed and summer 2024. Diagnostics Vital Signs (24Hr): Vital Signs - 24 hr 03/21/25 14:27 03/22/25 01:56 03/22/25 06:25 Temperature 97.4 F 97.4 F Pulse Rate 112 H 112 H 95 Respiratory Rate 18 18 16 Blood Pressure 140/89 H 140/89 H 124/88 Pulse Oximetry 98 98 98 Oxygen Delivery Method Room Air Room Air Room Air 03/22/25 12:30 Temperature 97.7 F Pulse Rate 97 Respiratory Rate 20 Blood Pressure 119/86 Pulse Oximetry 98 Oxygen Delivery Method Room Air BMI result Body Mass Index 35.8 Labs 03/21/25 13:06 03/21/25 13:06 Labs: Laboratory Results - last 48 hr 03/21/25 03/21/25 03/21/25 13:06 16:48 16:49 WBC 7.3 RBC 5.92 H Hgb 16.6 Hct 47.7 MCV 80.6 MCH 28.0 MCHC 34.8 RDW 13.7 Plt Count 268 MPV 9.6 Immature Gran % (Auto) 0.3 Neut % (Auto) 69.1 Lymph % (Auto) 21.8 [place] % (Auto) 6.9 Eos % (Auto) 1.2 Baso % (Auto) 0.7 Lymph # (Auto) 1.6 [place] # (Auto) 0.5 Eos # (Auto) 0.1 Baso # (Auto) 0.1 Abs Immat Gran (auto) 0.02 Absolute Neuts (auto) 5.1 Absolute Nucleated RBC 0.000 Nucleated RBC % (auto) 0.0 Sodium 142 Potassium 3.5 Chloride 104 Carbon Dioxide 29 Anion Gap 13 BUN 10 Creatinine 1.00 Estim Creat Clear Calc 94.4 Estimated GFR > 60 Random Glucose 100 Calcium 9.8 Magnesium 1.8 Total Bilirubin 1.0 Direct Bilirubin 0.2 AST 27 ALT 29 Alkaline Phosphatase 116 Total Protein 8.5 H Albumin 4.9 Urine Color Yellow Urine Appearance Clear Urine pH 6.0 Ur Specific [place] 1.025 Urine Protein Trace Urine Glucose (UA) Negative Urine Ketones 15 Urine Blood Negative Urine Nitrite Negative Ur Leukocyte Esterase Negative Urine RBC 0-2 Urine WBC 0-5 Ur Squamous Epith Cells 0-2 Urine Bacteria None Seen Hyaline Casts 3-5 Urine Opiates Screen Not Detected Ur Buprenorphine Scrn Not Detected Ur Oxycodone Screen Not Detected Urine Methadone Screen Not Detected Urine Fentanyl Screen Not Detected Ur Barbiturates Screen Not Detected Ur Phencyclidine Scrn Not Detected Ur Amphetamines Screen Not Detected U Benzodiazepines Scrn Not Detected Urine Cocaine Screen POSITIVE H U Marijuana (THC) Screen Not Detected Ethyl Alcohol < 10 Meds/Allergies Meds Home Medications ?Medication ?Instructions ?Recorded ?Confirmed ?Type escitalopram oxalate 20 mg tablet 20 mg PO QAM depressive disorder 03/21/25 03/21/25 History folic acid 1 mg tablet 1 mg PO DAILY 03/21/25 03/21/25 History levetiracetam 500 mg tablet 500 mg PO BID 03/21/25 03/21/25 History naltrexone 50 mg tablet 50 mg PO QAM 03/21/25 03/21/25 History quetiapine 200 mg tablet 200 mg PO BEDTIME 03/21/25 03/21/25 History thiamine HCl (vitamin B1) 100 mg 100 mg PO DAILY 03/21/25 03/21/25 History tablet Allergies Allergies Allergy/AdvReac Type Severity Reaction Status Date / Time No Known Drug Allergies (NO Allergy Unknown NONE Verified 03/21/25 12:59 KNOWN DRUG ALLERGIES) Mental Status Exam Mental Status Exam Narrative: disheveled, hospitala garb. cooperative. speech decr loudness, nml amount, latency. thoughts linear and logical. affect constricted. mood very poor. +SI. no HI/AVH. Assessment & Plan Assessment & Plan (1) Suicidal ideation: Status: Acute Code(s): R45.851 - Suicidal ideations (2) Seizure disorder: Status: Acute Code(s): G40.909 - Epilepsy, unspecified, not intractable, without status epilepticus (3) Cocaine use disorder: Status: Acute Code(s): F14.10 - Cocaine abuse, uncomplicated (4) Alcohol use disorder: Status: Acute Code(s): F10.90 - Alcohol use, unspecified, uncomplicated (5) Adjustment disorder: Status: Acute Code(s): F43.20 - Adjustment disorder, unspecified Plan ativan per [facility] for alcohol detox. supportive care for cocaine withdrawal. reassess tuesday when mood and physical comfort likely to have improved. SW to review social media strategist needs/requests with pt. Patient educated on: diagnosis, medication risk/benefits, substance abuse and medical condition Reason for continued inpatient stay Substantial Risk for: harm to self and inability to function Statement Statement: I have reviewed the history and physical and performed a pertinent examination on my patient. No changes have occurred unless specified. If the History and Physical was not performed prior to admission, the Hospitalist's service will be consulted for completing the admission physical. Time Spent With Patient Time: Total time managing care of this patient today __55__ minutes.
--- NOTE | 2025-03-22 14:29 | PC.ADMIT ---
This is the 1st admission for this 34 y.o. male to [facility] at [facility]. Arrived on unit at 12[address] on [address] and placed on 15 min safety checks. Referred by [facility] with Dx: Unspecified depressive d/o. Medical issues: Hx seizures. States 1st seizure was November 2023 after snorting Fentanyl that he thought was cocaine. Had one other known seizure 2 months ago, unknown reason. States he thinks he is having seizures while he sleeps as he wakes, vomits and returns to sleep and is confused upon waking. Crisis eval indicates pt reports daily crack cocaine, etoh use, but does not have money to support his habit. Tox screen positive for cocaine, etoh <10. Nurse to nurse done with [facility] ED pod prior to admission with reports of low CIWA scores. Low frustration tolerance noted upon arrival to unit. Stated he wanted a private room and did not want to deal with roommates. Displayed irritation when needs not met immediately, or needing to wait for attention from staff. Agitation noted during admission process. Stated he was unable to remember name of therapist and prescriber at [facility] when consents for release of information reviewed. Stated multiple times he was on waiting list for pcp at [facility] and numbers on insurance card have been changed. Irritated that this typewriter assembler only wrote down [facility] [address] [place] and not [address] for pharmacy. Informed all this information could be looked up and not to worry about these details if unknown. Stated this typewriter assembler did not seem to care about anything and did not accept feedback that this typewriter assembler was attempting to decrease his anxiety about not knowing information as information could be looked up. Stood up, stated he was done with this typewriter assembler, exited room and slammed door loudly. Signed CV after meeting with Dr Archer and stated he would accept prn Hydroxyzine. Accepted prn Hydroxyzine 25 mg po at 1417 for anxiety from manager intensive care unit with effects pending. Refused lunch, but accepted crackers and gingerale after receiving Hydroxyzine. Reports poor appetite and sleep. Reports high depression and anxiety. Denied SI/HI, AH/VH at time of admission to unit, stating he wanted discharge due to not wanting roommates.
[2025-03-22 19:54] VITALS: BP 134/79; PULSE 83; RESP 16; TEMP 36.8; O2SAT 97
[2025-03-23 07:40] VITALS: BP 125/87; PULSE 96; RESP 20; TEMP 36.8; O2SAT 96
--- NOTE | 2025-03-23 10:11 | P.PNPSI_ITS ---
Subjective Subjective Date of Service: 03/23/25 Reason For Visit: depression SI cocaine Interim History: Refused medications in AM. Says there is a lot of things going on outside. My electricity was shut off. I can't afford my living. Says he feels nausea when he eats and doesn't want to eat. He says I feel the aura of a seizure. He was encouraged to take his Keppra to avoid having a seizure. He reports depression and anxiety. No active SI. Review of Systems Review of Systems Denies any shortness of breath, chest pain, dizziness, lightheadedness, abdominal pain or discomfort, nausea vomiting or diarrhea Diagnostics Vital Signs (24Hr): Vital Signs - 24 hr 03/22/25 12:30 03/22/25 19:54 03/23/25 07:40 Temperature 97.7 F 98.3 F 98.2 F Pulse Rate 97 83 96 Respiratory Rate 20 16 20 Blood Pressure 119/86 134/79 125/87 Pulse Oximetry 98 97 96 Oxygen Delivery Method Room Air Room Air Room Air BMI result Body Mass Index 35.8 Labs 03/21/25 13:06 03/21/25 13:06 Labs: Laboratory Results - last 48 hr 03/21/25 03/21/25 03/21/25 13:06 16:48 16:49 WBC 7.3 RBC 5.92 H Hgb 16.6 Hct 47.7 MCV 80.6 MCH 28.0 MCHC 34.8 RDW 13.7 Plt Count 268 MPV 9.6 Immature Gran % (Auto) 0.3 Neut % (Auto) 69.1 Lymph % (Auto) 21.8 [place] % (Auto) 6.9 Eos % (Auto) 1.2 Baso % (Auto) 0.7 Lymph # (Auto) 1.6 [place] # (Auto) 0.5 Eos # (Auto) 0.1 Baso # (Auto) 0.1 Abs Immat Gran (auto) 0.02 Absolute Neuts (auto) 5.1 Absolute Nucleated RBC 0.000 Nucleated RBC % (auto) 0.0 Sodium 142 Potassium 3.5 Chloride 104 Carbon Dioxide 29 Anion Gap 13 BUN 10 Creatinine 1.00 Estim Creat Clear Calc 94.4 Estimated GFR > 60 Random Glucose 100 Calcium 9.8 Magnesium 1.8 Total Bilirubin 1.0 Direct Bilirubin 0.2 AST 27 ALT 29 Alkaline Phosphatase 116 Total Protein 8.5 H Albumin 4.9 Urine Color Yellow Urine Appearance Clear Urine pH 6.0 Ur Specific [place] 1.025 Urine Protein Trace Urine Glucose (UA) Negative Urine Ketones 15 Urine Blood Negative Urine Nitrite Negative Ur Leukocyte Esterase Negative Urine RBC 0-2 Urine WBC 0-5 Ur Squamous Epith Cells 0-2 Urine Bacteria None Seen Hyaline Casts 3-5 Urine Opiates Screen Not Detected Ur Buprenorphine Scrn Not Detected Ur Oxycodone Screen Not Detected Urine Methadone Screen Not Detected Urine Fentanyl Screen Not Detected Ur Barbiturates Screen Not Detected Ur Phencyclidine Scrn Not Detected Ur Amphetamines Screen Not Detected U Benzodiazepines Scrn Not Detected Urine Cocaine Screen POSITIVE H U Marijuana (THC) Screen Not Detected Ethyl Alcohol < 10 Medications Medications Current Medications Acetaminophen (Acetaminophen 325 Mg Tablet) 650 mg PO Q6H PRN PRN Reason: Headache/Pain, Scale 1-10 Last Admin: 03/22/25 17:18 Dose: 650 mg Al Hydroxide/Mg Hydroxide (Magnesium Hydrox/Alum Hydrox 30 Ml Oral.Susp) 30 ml PO Q6H PRN PRN Reason: Heartburn/Nausea Escitalopram Oxalate (Escitalopram Oxalate 20 Mg Tablet) 20 mg PO DAILY [facility] Last Admin: 03/22/25 08:52 Dose: 20 mg Folic Acid (Folic Acid 1 Mg Tablet) 1 mg PO DAILY [facility] Last Admin: 03/22/25 08:52 Dose: 1 mg Hydroxyzine HCl (Hydroxyzine Hcl 25 Mg Tablet) 25 mg PO Q6H PRN PRN Reason: mild anxiety Last Admin: 03/22/25 14:17 Dose: 25 mg Levetiracetam (Levetiracetam 500 Mg Tablet) 500 mg PO BID [facility] Last Admin: 03/22/25 20:10 Dose: 500 mg Lorazepam (Lorazepam 1 Mg Tablet) 1 mg PO Q2H PRN PRN Reason: CIWA 8-11 Lorazepam (Lorazepam 1 Mg Tablet) 2 mg PO Q2H PRN PRN Reason: CIWA 12-15 Lorazepam (Lorazepam 1 Mg Tablet) 3 mg PO Q2H PRN PRN Reason: CIWA > 15, and call Magnesium Hydroxide (Milk Of Magnesia 30 Ml Oral.Susp) 30 ml PO DAILY PRN PRN Reason: Constipation Naltrexone HCl (Naltrexone Hcl 50 Mg Tablet) 50 mg PO DAILY [facility] Last Admin: 03/22/25 08:52 Dose: 50 mg Nicotine Polacrilex (Nicotine Polacrilex 2 Mg Gum) 4 mg BUCCAL Q2H PRN PRN Reason: Nicotine Cravings Ondansetron HCl (Ondansetron Odt 4 Mg Tab.Rapdis) 4 mg TRANSLINGU Q6H PRN PRN Reason: Nausea and Vomiting Quetiapine Fumarate (Quetiapine Fumarate 200 Mg Tablet) 200 mg PO BEDTIME [facility] Last Admin: 03/22/25 20:10 Dose: 200 mg Thiamine HCl (Thiamine Hcl 100 Mg Tablet) 100 mg PO DAILY [facility] Last Admin: 03/22/25 08:52 Dose: 100 mg Trazodone HCl (Trazodone Hcl 50 Mg Tablet) 50 mg PO BEDTIME MRX1 PRN PRN Reason: Insomnia Last Admin: 03/23/25 00:22 Dose: 50 mg Allergies Allergies Allergy/AdvReac Type Severity Reaction Status Date / Time No Known Drug Allergies (NO Allergy Unknown NONE Verified 03/21/25 12:59 KNOWN DRUG ALLERGIES) Assessment & Plan Assessment & Plan (1) Seizure disorder: Status: Acute Code(s): G40.909 - Epilepsy, unspecified, not intractable, without status epilepticus Plan 29-year-old male with a past medical history of depression, seizure disorder, hypertension presented to the ED for suicide ideation, now admitted to inpatient for further care. Depression with suicidal ideation Treatment per psychiatric team Seizure disorder Continues on Keppra b.i.d. No recent seizures Hypertension Not currently on any meds Continue to monitor Thank you for allowing me to participate in the care of this patient. Will follow as needed, please notify medical provider with any changes in condition or concerns. 03/23: continue current management and treatment plan. Encourage adherence. Offered Zofran for nausea. Reason for continued inpatient stay Substantial Risk for: harm to self, inability to function, rapid decompensation and med/psych decompensation Time Spent With Patient Time: Total time managing care of this patient today ____ minutes.
--- NOTE | 2025-03-23 16:56 | PC.NURSE ---
Dr. Mackey authorized late administration of Keppra. Discontinued CIWA.
[2025-03-23 20:00] VITALS: BP 137/72; PULSE 79; RESP 16; TEMP 36.5; O2SAT 96
--- NOTE | 2025-03-24 11:23 | P.PNPSI_ITS ---
Subjective Subjective Date of Service: 03/24/25 Reason For Visit: depression SI cocaine Interim History: Patient was seen in his room. He was irritable. When asked how he is doing he didn't want to talk. He started swearing at this examiner. Did I stutter, I said don't want to talk to you. Get the f* away. I don't give a f* who you are! Patient has no objective symptoms of ETOH withdrawal. He took his Keppra after refusing it yeterday. He reports depression and anxiety. Denies active SI. Review of Systems Review of Systems Denies any shortness of breath, chest pain, dizziness, lightheadedness, abdominal pain or discomfort, nausea vomiting or diarrhea Mental Status Exam Mental Status Exam Narrative: disheveled, hospitala garb. cooperative. speech decr loudness, nml amount, latency. thoughts linear and logical. affect constricted. mood very poor. +SI. no HI/AVH. Diagnostics Vital Signs (24Hr): Vital Signs - 24 hr 03/23/25 20:00 Temperature 97.7 F Pulse Rate 79 Respiratory Rate 16 Blood Pressure 137/72 Pulse Oximetry 96 Oxygen Delivery Method Room Air BMI result Body Mass Index 35.8 Labs 03/21/25 13:06 03/21/25 13:06 Medications Medications Current Medications Acetaminophen (Acetaminophen 325 Mg Tablet) 650 mg PO Q6H PRN PRN Reason: Headache/Pain, Scale 1-10 Last Admin: 03/24/25 09:10 Dose: 650 mg Al Hydroxide/Mg Hydroxide (Magnesium Hydrox/Alum Hydrox 30 Ml Oral.Susp) 30 ml PO Q6H PRN PRN Reason: Heartburn/Nausea Escitalopram Oxalate (Escitalopram Oxalate 20 Mg Tablet) 20 mg PO BEDTIME [facility] Last Admin: 03/23/25 21:15 Dose: 20 mg Folic Acid (Folic Acid 1 Mg Tablet) 1 mg PO DAILY [facility] Last Admin: 03/24/25 09:06 Dose: 1 mg Hydroxyzine HCl (Hydroxyzine Hcl 25 Mg Tablet) 25 mg PO Q6H PRN PRN Reason: mild anxiety Last Admin: 03/22/25 14:17 Dose: 25 mg Levetiracetam (Levetiracetam 500 Mg Tablet) 500 mg PO BID [facility] Last Admin: 03/24/25 09:06 Dose: 500 mg Lorazepam (Lorazepam 1 Mg Tablet) 1 mg PO Q2H PRN PRN Reason: CIWA 8-11 Lorazepam (Lorazepam 1 Mg Tablet) 2 mg PO Q2H PRN PRN Reason: CIWA 12-15 Lorazepam (Lorazepam 1 Mg Tablet) 3 mg PO Q2H PRN PRN Reason: CIWA > 15, and call Magnesium Hydroxide (Milk Of Magnesia 30 Ml Oral.Susp) 30 ml PO DAILY PRN PRN Reason: Constipation Naltrexone HCl (Naltrexone Hcl 50 Mg Tablet) 50 mg PO DAILY [facility] Last Admin: 03/24/25 09:06 Dose: 50 mg Nicotine Polacrilex (Nicotine Polacrilex 2 Mg Gum) 4 mg BUCCAL Q2H PRN PRN Reason: Nicotine Cravings Ondansetron HCl (Ondansetron Odt 4 Mg Tab.Rapdis) 4 mg TRANSLINGU Q6H PRN PRN Reason: Nausea and Vomiting Last Admin: 03/23/25 14:51 Dose: 4 mg Quetiapine Fumarate (Quetiapine Fumarate 200 Mg Tablet) 200 mg PO BEDTIME [facility] Last Admin: 03/23/25 21:09 Dose: 200 mg Thiamine HCl (Thiamine Hcl 100 Mg Tablet) 100 mg PO DAILY [facility] Last Admin: 03/24/25 09:06 Dose: 100 mg Trazodone HCl (Trazodone Hcl 50 Mg Tablet) 50 mg PO BEDTIME MRX1 PRN PRN Reason: Insomnia Last Admin: 03/23/25 00:22 Dose: 50 mg Allergies Allergies Allergy/AdvReac Type Severity Reaction Status Date / Time No Known Drug Allergies (NO Allergy Unknown NONE Verified 03/21/25 12:59 KNOWN DRUG ALLERGIES) Assessment & Plan Assessment & Plan (1) Suicidal ideation: Status: Acute Code(s): R45.851 - Suicidal ideations (2) Seizure disorder: Status: Acute Code(s): G40.909 - Epilepsy, unspecified, not intractable, without status epilepticus (3) Cocaine use disorder: Status: Acute Code(s): F14.10 - Cocaine abuse, uncomplicated (4) Alcohol use disorder: Status: Acute Code(s): F10.90 - Alcohol use, unspecified, uncomplicated (5) Adjustment disorder: Status: Acute Code(s): F43.20 - Adjustment disorder, unspecified Plan ativan per [facility] for alcohol detox. supportive care for cocaine withdrawal. reassess tuesday when mood and physical comfort likely to have improved. SW to review social media marketer needs/requests with pt. 03/24: continue current management and treatment plan. Reason for continued inpatient stay Substantial Risk for: harm to self and rapid decompensation Time Spent With Patient Time: Total time managing care of this patient today ____ minutes.
[2025-03-24 11:54] VITALS: BP 120/81; PULSE 76; RESP 16; TEMP 36.5; O2SAT 96
[2025-03-24 20:00] VITALS: BP 127/80; PULSE 81; RESP 16; TEMP 36.4; O2SAT 96
[2025-03-25 07:57] VITALS: BP 124/65; PULSE 90; RESP 18; TEMP 36.8; O2SAT 96
[2025-03-25 08:00] VITALS: BP 124/65; PULSE 90; RESP 18; TEMP 36.8; O2SAT 96
--- NOTE | 2025-03-25 11:53 | P.PNPSI_ITS ---
Subjective Subjective Date of Service: 03/25/25 Reason For Visit: depression SI cocaine Interim History: more expressive, louder voice, better eye contact today. appears to be in a better mood. asking for access to phone to be able to pay electricity bill to have service reinstated; a friend is giving him some money to do so. agreeable to gabapentin PRN neuropathy Sx. would like to discharge assuming lights back on by then. per staff, mild dep and anxiety. flashbacks of friend's suicide. tearful. taking meds. more engaging. racing thoughts. feeling confused at times. slept 8 hours. Mental Status Exam Mental Status Exam Narrative: adequately dressed and groomed. cooperative. speech nml loudness, nml amount, latency. thoughts linear and logical. affect constricted. mood improved. no SI/HI/AVH expressed. Diagnostics Vital Signs (24Hr): Vital Signs - 24 hr 03/24/25 11:54 03/24/25 20:00 03/25/25 07:57 Temperature 97.7 F 97.5 F 98.3 F Pulse Rate 76 81 90 Respiratory Rate 16 16 18 Blood Pressure 120/81 127/80 124/65 Pulse Oximetry 96 96 96 Oxygen Delivery Method Room Air Room Air Room Air 03/25/25 08:00 Temperature 98.3 F Pulse Rate 90 Respiratory Rate 18 Blood Pressure 124/65 Pulse Oximetry 96 Oxygen Delivery Method Room Air BMI result Body Mass Index 35.8 Labs 03/21/25 13:06 03/21/25 13:06 Medications Medications Current Medications Acetaminophen (Acetaminophen 325 Mg Tablet) 650 mg PO Q6H PRN PRN Reason: Headache/Pain, Scale 1-10 Last Admin: 03/24/25 16:27 Dose: 650 mg Al Hydroxide/Mg Hydroxide (Magnesium Hydrox/Alum Hydrox 30 Ml Oral.Susp) 30 ml PO Q6H PRN PRN Reason: Heartburn/Nausea Escitalopram Oxalate (Escitalopram Oxalate 20 Mg Tablet) 20 mg PO BEDTIME [facility] Last Admin: 03/24/25 20:46 Dose: 20 mg Folic Acid (Folic Acid 1 Mg Tablet) 1 mg PO DAILY [facility] Last Admin: 03/25/25 09:04 Dose: 1 mg Gabapentin (Gabapentin 100 Mg Capsule) 100 mg PO TID PRN PRN Reason: neuropathy Hydroxyzine HCl (Hydroxyzine Hcl 25 Mg Tablet) 25 mg PO Q6H PRN PRN Reason: mild anxiety Last Admin: 03/24/25 12:52 Dose: 25 mg Ibuprofen (Ibuprofen 400 Mg Tablet) 400 mg PO Q6H PRN PRN Reason: Headache Last Admin: 03/24/25 12:52 Dose: 400 mg Levetiracetam (Levetiracetam 500 Mg Tablet) 500 mg PO BID [facility] Last Admin: 03/25/25 09:04 Dose: 500 mg Magnesium Hydroxide (Milk Of Magnesia 30 Ml Oral.Susp) 30 ml PO DAILY PRN PRN Reason: Constipation Naltrexone HCl (Naltrexone Hcl 50 Mg Tablet) 50 mg PO DAILY [facility] Last Admin: 03/25/25 09:04 Dose: 50 mg Nicotine Polacrilex (Nicotine Polacrilex 2 Mg Gum) 4 mg BUCCAL Q2H PRN PRN Reason: Nicotine Cravings Ondansetron HCl (Ondansetron Odt 4 Mg Tab.Rapdis) 4 mg TRANSLINGU Q6H PRN PRN Reason: Nausea and Vomiting Last Admin: 03/23/25 14:51 Dose: 4 mg Quetiapine Fumarate (Quetiapine Fumarate 200 Mg Tablet) 200 mg PO BEDTIME [facility] Last Admin: 03/24/25 20:46 Dose: 200 mg Thiamine HCl (Thiamine Hcl 100 Mg Tablet) 100 mg PO DAILY [facility] Last Admin: 03/25/25 09:04 Dose: 100 mg Trazodone HCl (Trazodone Hcl 50 Mg Tablet) 50 mg PO BEDTIME MRX1 PRN PRN Reason: Insomnia Last Admin: 03/23/25 00:22 Dose: 50 mg Allergies Allergies Allergy/AdvReac Type Severity Reaction Status Date / Time No Known Drug Allergies (NO Allergy Unknown NONE Verified 03/21/25 12:59 KNOWN DRUG ALLERGIES) Assessment & Plan Assessment & Plan (1) Suicidal ideation: Status: Acute Code(s): R45.851 - Suicidal ideations (2) Seizure disorder: Status: Acute Code(s): G40.909 - Epilepsy, unspecified, not intractable, without status epilepticus (3) Cocaine use disorder: Status: Acute Code(s): F14.10 - Cocaine abuse, uncomplicated (4) Alcohol use disorder: Status: Acute Code(s): F10.90 - Alcohol use, unspecified, uncomplicated (5) Adjustment disorder: Status: Acute Code(s): F43.20 - Adjustment disorder, unspecified Plan ativan per CIWA for alcohol detox. supportive care for cocaine withdrawal. reassess tuesday when mood and physical comfort likely to have improved. SW to review nephrology social worker needs/requests with pt. 03/24: continue current management and treatment plan. 03/25: DC ativan PRNs, not scoring on CIWA and no withdrawal Sx. change gabapentin for neuropathy to 100 TID PRN, as it happens only 3-4 times per month and some months not at all. allow access to phone so he can get his electricity restarted. planning for discharge. Reason for continued inpatient stay Substantial Risk for: inability to function and rapid decompensation Time Spent With Patient Time: Total time managing care of this patient today __25__ minutes.
[2025-03-25 20:00] VITALS: BP 138/72; PULSE 93; RESP 20; TEMP 37.1; O2SAT 96
--- NOTE | 2025-03-26 | EEG_ITS ---
Study Performed: 1st floor Reason For EEG: Seizures Medications: acetaminophen, hydroxide, folic acid, gabapentin, hydroxyzine, ibuprofen, Keppra, mom, naltrexone, ondansetron, prazosin, thiamine, trazodone History: H/O depression, SI cocaine, H/O seizures since teenage - admitted for concerns of seizure activity, waking up confused - pt having what he considers his aura with change in vision with spots- Clinical Observation: No clinical changes were noted during this study [employer]ile Supply Technician Comments: Photic stimulation: Performed Hyperventilation: Performed ? good effort Behavioral State: Cooperative, anxious and restless at times State of consciousness: Awake Skull defect: No Sedation: No Handedness: Right Duration of study: 31 mins 10 secs Description: This is a 16 channel EEG with an EKG lead. Patient is reported awake during the tracing. Background EEG rhythm is mixed theta beta with intermittent left frontal sharply controlled theta range discharges, asymmetric slowing, and sharp waves with phase reversal at F3. Photic stimulation does not produce any significant abnormality. Hyperventilation does not reveal any significant abnormality either. Cardiac lead does not reveal any significant arrhythmia. 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
[2025-03-26 07:32] VITALS: BP 119/79; PULSE 75; RESP 18; TEMP 36.3; O2SAT 98
[2025-03-26] MEDS: Sodium Chloride 0.65 % Nasal 44 ML SPRBTL 1 SPRAY NOSTRIL-B (12:50)
--- NOTE | 2025-03-26 13:32 | HO.PSYCHPN ---
Subjective Subjective Date of Service: 03/26/25 Reason For Visit: depression SI cocaine Interim History: concerned he is having seizures in his sleep, waking up having vomited or feeling confused. worried keppra dosing is too little. reports no neurologist but states he was Dxed with Sz disorder after having a seizure there last year (after an overdose). agrees to EEG for screening. otherwise doing well, planning for discharge. per staff, dep/anx 3. taking meds. attending some groups. overwhelmed, stressed, racing thoughts. +flashbacks. Mental Status Exam Mental Status Exam Narrative: adequately dressed and groomed. cooperative. speech nml loudness, nml amount, latency. thoughts linear and logical. affect constricted. mood improved. no SI/HI/AVH expressed. Diagnostics Vital Signs (24Hr): Vital Signs - 24 hr 03/25/25 20:00 03/26/25 07:32 Temperature 98.7 F 97.4 F Pulse Rate 93 75 Respiratory Rate 20 18 Blood Pressure 138/72 119/79 Pulse Oximetry 96 98 Oxygen Delivery Method Room Air Room Air BMI result Body Mass Index 35.8 Labs 03/21/25 13:06 03/21/25 13:06 Medications Medications Current Medications Acetaminophen (Acetaminophen 325 Mg Tablet) 650 mg PO Q6H PRN PRN Reason: Headache/Pain, Scale 1-10 Last Admin: 03/24/25 16:27 Dose: 650 mg Al Hydroxide/Mg Hydroxide (Magnesium Hydrox/Alum Hydrox 30 Ml Oral.Susp) 30 ml PO Q6H PRN PRN Reason: Heartburn/Nausea Escitalopram Oxalate (Escitalopram Oxalate 20 Mg Tablet) 20 mg PO BEDTIME [facility] Last Admin: 03/25/25 21:22 Dose: 20 mg Folic Acid (Folic Acid 1 Mg Tablet) 1 mg PO DAILY [facility] Last Admin: 03/26/25 08:24 Dose: 1 mg Gabapentin (Gabapentin 100 Mg Capsule) 100 mg PO TID PRN PRN Reason: neuropathy Last Admin: 03/25/25 18:13 Dose: 100 mg Hydroxyzine HCl (Hydroxyzine Hcl 25 Mg Tablet) 25 mg PO Q6H PRN PRN Reason: mild anxiety Last Admin: 03/24/25 12:52 Dose: 25 mg Ibuprofen (Ibuprofen 400 Mg Tablet) 400 mg PO Q6H PRN PRN Reason: Headache Last Admin: 03/24/25 12:52 Dose: 400 mg Levetiracetam (Levetiracetam 500 Mg Tablet) 500 mg PO BID [facility] Last Admin: 03/26/25 08:24 Dose: 500 mg Magnesium Hydroxide (Milk Of Magnesia 30 Ml Oral.Susp) 30 ml PO DAILY PRN PRN Reason: Constipation Naltrexone HCl (Naltrexone Hcl 50 Mg Tablet) 50 mg PO DAILY [facility] Last Admin: 03/26/25 08:24 Dose: 50 mg Nicotine Polacrilex (Nicotine Polacrilex 2 Mg Gum) 4 mg BUCCAL Q2H PRN PRN Reason: Nicotine Cravings Ondansetron HCl (Ondansetron Odt 4 Mg Tab.Rapdis) 4 mg TRANSLINGU Q6H PRN PRN Reason: Nausea and Vomiting Last Admin: 03/23/25 14:51 Dose: 4 mg Prazosin HCl (Prazosin Hcl 1 Mg Capsule) 1 mg PO BEDTIME [facility]; Protocol Quetiapine Fumarate (Quetiapine Fumarate 200 Mg Tablet) 200 mg PO BEDTIME [facility] Last Admin: 03/25/25 21:23 Dose: 200 mg Sodium Chloride (Sodium Chloride 0.65 % Nasal 44 Ml Sprbtl) 1 spray NOSTRIL-B Q1H PRN PRN Reason: Dry Nasal Passages Last Admin: 03/26/25 12:50 Dose: 1 spray Thiamine HCl (Thiamine Hcl 100 Mg Tablet) 100 mg PO DAILY [facility] Last Admin: 03/26/25 08:24 Dose: 100 mg Trazodone HCl (Trazodone Hcl 50 Mg Tablet) 50 mg PO BEDTIME MRX1 PRN PRN Reason: Insomnia Last Admin: 03/23/25 00:22 Dose: 50 mg Allergies Allergies Allergy/AdvReac Type Severity Reaction Status Date / Time No Known Drug Allergies (NO Allergy Unknown NONE Verified 03/21/25 12:59 KNOWN DRUG ALLERGIES) Assessment & Plan Assessment & Plan (1) Suicidal ideation: Status: Acute Code(s): R45.851 - Suicidal ideations (2) Seizure disorder: Status: Acute Code(s): G40.909 - Epilepsy, unspecified, not intractable, without status epilepticus (3) Cocaine use disorder: Status: Acute Code(s): F14.10 - Cocaine abuse, uncomplicated (4) Alcohol use disorder: Status: Acute Code(s): F10.90 - Alcohol use, unspecified, uncomplicated (5) Adjustment disorder: Status: Acute Code(s): F43.20 - Adjustment disorder, unspecified Plan ativan per CIWA for alcohol detox. supportive care for cocaine withdrawal. reassess tuesday when mood and physical comfort likely to have improved. SW to review social and political studies professor needs/requests with pt. 03/24: continue current management and treatment plan. 03/25: DC ativan PRNs, not scoring on CIWA and no withdrawal Sx. change gabapentin for neuropathy to 100 TID PRN, as it happens only 3-4 times per month and some months not at all. allow access to phone so he can get his electricity restarted. planning for discharge. 03/26: continues improved. planning for discharge. believes he has Sz disorder, reluctantly agrees to EEG for screening. pt more likely has h/o Sz in the setting of alcohol withdrawal and drug overdose (cocaine). Reason for continued inpatient stay Substantial Risk for: harm to self, inability to function and rapid decompensation Time Spent With Patient Time: Total time managing care of this patient today __25__ minutes.
[2025-03-26 20:00] VITALS: BP 144/73; PULSE 101; RESP 18; TEMP 36.7; O2SAT 95
[2025-03-27 08:00] VITALS: RESP 18
--- NOTE | 2025-03-27 09:15 | P.DS_ITS ---
DS: Providers Provider Date of Service: 03/27/25 Date of admission: 03/22/25 10:15 Date of discharge: 03/27/25 Primary care physician: Zehra Physician DS: Diagnosis Discharge Diagnosis (1) Suicidal ideation: Status: Acute (2) Seizure disorder: Status: Acute (3) Cocaine use disorder: Status: Acute (4) Alcohol use disorder: Status: Acute (5) Adjustment disorder: Status: Acute DS: Medications Discharge Medications Home Medications: Home Medications ?Medication ?Instructions ?Recorded ?Confirmed escitalopram oxalate 20 mg tablet 20 mg PO QAM depress matthew disorder 03/21/25 03/21/25 folic acid 1 mg tablet 1 mg PO DAILY 03/21/2503/21 levetiracetam 500 mg tablet 500 mg PO BID 03/21/25 naltrexone 50 mg tablet 50 mg PO QAM 03/21/25 quetiapine 200 mg tablet 200 mg PO BEDTIME 03/21/25 0 03/21/25 thiamine HCl (vitamin B1) 100 mg 100 mg PO DAILY 03/2103/21/25 tablet Previous Rx's ?Medication ?Instructions ?Recorded gabapentin 100 mg capsule 100 mg PO TID PRN neuropathy 30 03/27/25 days #90 caps prazosin 1 mg capsule 1 mg PO BEDTIME 30 days #30 caps 03/27/25 Data Data Completed and Pending Completed studies during hospitalization [Text1]: 03/21/25 03/21/25 03/21/25 13:06 16:48 16:49 WBC 7.3 RBC 5.92 H Hgb 16.6 Hct 47.7 MCV 80.6 MCH 28.0 MCHC 34.8 RDW 13.7 Plt Count 268 MPV 9.6 Immature Gran % (Auto) 0.3 Neut % (Auto) 69.1 Lymph % (Auto) 21.8 [place] % (Auto) 6.9 Eos % (Auto) 1.2 Baso % (Auto) 0.7 Lymph # (Auto) 1.6 [place] # (Auto) 0.5 Eos # (Auto) 0.1 Baso # (Auto) 0.1 Abs Immat Gran (auto) 0.02 Absolute Neuts (auto) 5.1 Absolute Nucleated RBC 0.000 Nucleated RBC % (auto) 0.0 Sodium 142 Potassium 3.5 Chloride 104 Carbon Dioxide 29 Anion Gap 13 BUN 10 Creatinine 1.00 Estim Creat Clear Calc 94.4 Estimated GFR > 60 Random Glucose 100 Calcium 9.8 Magnesium 1.8 Total Bilirubin 1.0 Direct Bilirubin 0.2 AST 27 ALT 29 Alkaline Phosphatase 116 Total Protein 8.5 H Albumin 4.9 Urine Color Yellow Urine Appearance Clear Urine pH 6.0 Ur Specific Worth 1.025 Urine Protein Trace Urine Glucose (UA) Negative Urine Ketones 15 Urine Blood Negative Urine Nitrite Negative Ur Leukocyte Esterase Negative Urine RBC 0-2 Urine WBC 0-5 Ur Squamous Epith Cells 0-2 Urine Bacteria None Seen Hyaline Casts 3-5 Urine Opiates Screen Not Detected Ur Buprenorphine Scrn Not Detected Ur Oxycodone Screen Not Detected Urine Methadone Screen Not Detected Urine Fentanyl Screen Not Detected Ur Barbiturates Screen Not Detected Ur Phencyclidine Scrn Not Detected Ur Amphetamines Screen Not Detected U Benzodiazepines Scrn Not Detected Urine Cocaine Screen POSITIVE H U Marijuana (THC) Screen Not Detected Ethyl Alcohol < 10 DS: Summary Hospital Course Hospital Course: per 03/22 admission note: HPI Narrative: per ZORAIDA salmeron, pt was referred to crisis from his clinician at [facility] after he expressed SI with plan to overdose on his medications. he reported he has no electricity or food in his apartment at [facility] at the moment and has been experiencing increased depression and anxiety. per collateral from pt's transformation coach, pt consumes alcohol and crack cocaine daily but does not have the financial resources to maintain that pace. in ED, labs notable for cocaine POS utox. on interview with MD, pt appeared most concerned about the recent cut-off of electricity in his apartment, which he stated he does not currently have the money to restart (service was terminated for non-payment). he is requesting social work help to have his service restarted. in addition, he reports he has no food in his apartment. he believes he has Sz D/O but has no neurologist, saying he gets his AED from [facility] prescriber. he also reports h/o alcohol withdrawal Sz. endorsing PRESTON, sweats, tremors, nausea today, agreeable to ativan per CIWA protocol. reports daily EtOH until 2 days ago. endorses trauma Hx, multiple suicide attempts. taking lexapro, naltrexone, seroquel, keppra; would like to continue curent regimen for now. plan to allow pt to get through the large part of detox/withdrawal over the weekend and reassess status on tuesday, when he will also be able to meet with SW. Past Psychiatric History: hosps: about 3 SA: reports about 4. MRE summer 2024 via attempted OD on pills SIB: denies outpt: [facility] Medical Evaluation Reviewed: Yes [facility] Medical History Hypertension ADHD Narrative: seizure disorder - reports it started last year, states he has no neurologist Family History: mother - depression brother - ADHD Social History: living at [facility]. unemployed. 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 electricity was cut off yesterday due to nonpayment. has [employer] and food stamps income. HS grad. Substance History: tobacco/nicotine - 2-3 times per week cannabis - denies alcohol - daily, as much as he can obtain cocaine - several days weekly opioids - denies stimulants - denies benzos - denies other - denies Trauma History: reports friend suicided via GSW. found another friend overdosed and summer 2024. Precis: 03/22: ativan per CIWA for alcohol detox. supportive care for cocaine withdrawal. reassess tuesday when mood and physical comfort likely to have improved. SW to review dialysis social worker needs/requests with pt. 03/24: continue current management and treatment plan. 03/25: DC ativan PRNs, not scoring on CIWA and no withdrawal Sx. change gabapentin for neuropathy to 100 TID PRN, as it happens only 3-4 times per month and some months not at all. allow access to phone so he can get his electric ity restarted. planning for discharge. 03/26: continues improved. planning for discharge. believes he has Sz disorder, reluctantly agrees to EEG for screening. pt more likely has h/o Sz in the setting of alcohol withdrawal and drug overdose (cocaine). 03/27: EEG results pending. became agitated by manic peer this morning and became aggressive toward peer and then multiple staff who attempted to intervene. this is not the first time for similar behaviors. stay has become untenable, pt discharged AMA. Time Spent with Patient Time attestation: Total time managing care of this patient today __35__ minutes. Discharge Plan Discharge Anticipated Discharge Date/Time: 03/27/25 09:13 Patient Disposition: Home, Self-Care Discharge Diagnosis: Adjustment Disorder Cocaine Use Disorder Alcohol Use Disorder Referrals: Cderic Meade (Therapy) [Other] - 04/01/25 10:00 am Referral Note: TELEHEALTH APPOINTMENT Casie Sanchez (Psychiatry) [Other] - 04/24/25 1:30 pm Referral Note: TELEHEALTH APPOINTMENT [facility] [Other] - 1 Week Referral Note: Please call the number above for a primary care provider Discharge Medications: New prazosin 1 mg Capsule 1 mg PO BEDTIME 30 Days Qty: 30 0RF Protocol: Hold for SBP< HOLD for SBP < : 90 gabapentin 100 mg Capsule 100 mg PO TID PRN (Reason: neuropathy) 30 Days Qty: 90 0RF Continued levetiracetam 500 mg tablet 500 mg PO BID naltrexone 50 mg tablet 50 mg PO QAM quetiapine 200 mg tablet 200 mg PO BEDTIME thiamine HCl (vitamin B1) 100 mg tablet 100 mg PO DAILY folic acid 1 mg tablet 1 mg PO DAILY escitalopram oxalate 20 mg tablet 20 mg PO QAM Discharge Orders: Discharge Order (Routine); Ordered 03/27/25 Ordered By: Jose Archer Diet: Advance to usual diet Activity on Discharge: As tolerated Stand Alone Forms: Patient Portal Discharge page, Community Support Print Language: Lao Care Plan Goals: remain safe and sober and stable in the outpatient treatment setting Health Concerns: none Plan of Treatment: take medications as prescribed, contact your outpatient treaters at [facility] for appointments Assessment: not at imminent risk of intentional harm to self or others due to mental illness treatable on an inpatient psychiatric unit. Discharge Date/Time: 03/27/25 09:26
== END 2025-03-27 09:26 | disposition home or self-care (01) | DRG 755 ==
LOC: HO.ED 14:41 → HO.PADLT16 03-22 12:00
PROVIDERS: Admitting Provider Psychiatry & Neurology Psychiatry; Emergency Provider Emergency Medicine; Visit Provider Psychiatry & Neurology Psychiatry
DX: F43.20 Adjustment disorder, unspecified (principal); G40.909 Epilepsy, unspecified, not intractable, without status epilepticus; R45.851 Suicidal ideations; F90.9 Attention-deficit hyperactivity disorder, unspecified type; F10.10 Alcohol abuse, uncomplicated; F14.10 Cocaine abuse, uncomplicated; Z79.899 Other long term (current) drug therapy
CPT/HCPCS: 36415; 80048; 80076; 80307; 81001; 83735; 85025; 93005; 95816; 99285

== ENCOUNTER → 2025-03-21 15:20 | Outpatient (BNV) | payer MEDICAID, SELFPAY | PROVIDERS: Admitting Provider Psychiatry & Neurology Psychiatry; Emergency Provider Emergency Medicine; Visit Provider Internal Medicine | DX: I49.9 Cardiac arrhythmia, unspecified (principal) | CPT/HCPCS: 93010 ==

== ENCOUNTER 2025-03-22 10:15 | Outpatient (BNV) | payer MEDICAID, SELFPAY | END 2025-03-26 15:50 | PROVIDERS: Admitting Provider Psychiatry & Neurology Psychiatry; Emergency Provider Emergency Medicine; Visit Provider Psychiatry & Neurology Neurology | DX: R94.01 Abnormal electroencephalogram [EEG] (principal) | CPT/HCPCS: 95816 ==

== ENCOUNTER → 2025-03-22 10:15 | Outpatient (BNV) | payer OTHER, SELFPAY | PROVIDERS: Admitting Provider Psychiatry & Neurology Psychiatry; Emergency Provider Emergency Medicine; Visit Provider Psychiatry & Neurology Psychiatry | DX: R45.851 Suicidal ideations (principal); G40.909 Epilepsy, unspecified, not intractable, without status epilepticus; F14.10 Cocaine abuse, uncomplicated; F10.90 Alcohol use, unspecified, uncomplicated; F43.20 Adjustment disorder, unspecified | CPT/HCPCS: 99232; 99233 ==

== ENCOUNTER → 2025-03-22 10:15 | Outpatient (BNV) | payer MEDICAID, SELFPAY | PROVIDERS: Admitting Provider Psychiatry & Neurology Psychiatry; Emergency Provider Emergency Medicine; Visit Provider Nurse Practitioner Family | DX: G40.909 Epilepsy, unspecified, not intractable, without status epilepticus (principal) | CPT/HCPCS: 99221 ==